=== PATIENT | male | born 1985 | race Two or more races ===

== ENCOUNTER 2024-11-14 07:51 | Emergency (ER) | payer OTHER ==
[~2024-11-14] VITALS: Ht 180.3 cm; Wt 78.5 kg
[~2024-11-14 07:51] MED LIST: ULTRACET PO; ZANTAC150 MG PO
[2024-11-14] MEDS ORDERED: POVIDONE-IODINE 118 ML BOTT TOP ONE (08:05)
[2024-11-14 08:12] VITALS: BP 114/78; O2SAT 98
[2024-11-14] MEDS ORDERED: LEXAPRO5 MG PO (08:15)
[2024-11-14] MEDS ORDERED: CIPROFLOXACIN IN 5 % DEXTROSE 400 MG/200 ML PIGGYBAG IV ONE ×2 (08:45→09:37)
[2024-11-14] MEDS ORDERED: TETANUS & DIPHTHERIA TOX,ADULT 0.5 ML VIAL IM ONE (08:45)
[2024-11-14] MEDS ORDERED: LIDOCAINE HCL 1% 10ML VIAL ONE (08:54)
[2024-11-14] MEDS ORDERED: LIDOCAINE HCL 1%/EPINEPHRINE 20ML VIAL IJ ONE (08:55)
[2024-11-14] MEDS ORDERED: DIPHTH,PERTUSS(ACELL),TET VAC 0.5 ML SYRINGE IM ONE (09:37)
[2024-11-14] MEDS ORDERED: DIPHTH,PERTUSS(ACELL),TET VAC 0.5 ML SYRINGE IM STA (09:52)
== END 2024-11-14 10:44 | disposition home or self-care (01) ==
LOC: ER 07:51
DX: S01.01XA Laceration without foreign body of scalp, initial encounter (principal); S61.412A Laceration without foreign body of left hand, initial encounter; S81.012A Laceration without foreign body, left knee, initial encounter; S81.011A Laceration without foreign body, right knee, initial encounter; S41.012A Laceration without foreign body of left shoulder, initial encounter; X58.XXXA Exposure to other specified factors, initial encounter; Y93.89 Activity, other specified; Y92.018 Other place in single-family (private) house as the place of occurrence of the external cause; Y99.9 Unspecified external cause status; Z88.6 Allergy status to analgesic agent; Z88.2 Allergy status to sulfonamides; Z88.8 Allergy status to other drugs, medicaments and biological substances
CPT/HCPCS: 13101; 13102 ×3; 13121; 13122; 13132; 13133 ×2; 90471; 90714; 96365; 99284; J0744; J1670; J3490